=== PATIENT | female | born 1975 | race Caucasian/White ===

== ENCOUNTER 2017-02-19 17:50 | Emergency (ER) | payer MEDICAID, OTHER ==
[~2017-02-19] VITALS: Ht 162.6 cm; Wt 86.4 kg
[~2017-02-19 17:50] MED LIST: CIPR-278 PO; CITA20TA9 PO; FERR-89 PO; FLUC200T PO; OLAN10TA3 PO
[2017-02-19] MEDS ORDERED: LIDOCAINE HCL 1% 10 ML VIAL INJ ONE (19:00)
[2017-02-19] MEDS ORDERED: CEPHALEXIN MONOHYDRATE 500 MG CAPSULE PO ONE (19:00)
[2017-02-19] MEDS ORDERED: SULFAMETHOX/TRIMETH DS 800-160 MG/TABLET PO ONE (19:00)
[2017-02-19] MEDS ORDERED: HYDROCODONE/ACETAMINOPHEN 5-325 MG TABLET PO ONE ×2 (19:00→21:30)
[2017-02-19] MEDS ORDERED: MUPIROCIN CALCIUM 2% 22 GM OINTMENT TP ONE (21:00)
[2017-02-19 21:52] VITALS: BP 122/78
== END 2017-02-19 21:55 | disposition home or self-care (01) ==
LOC: EMS 17:51
DX: L03.032 Cellulitis of left toe (principal); L02.612 Cutaneous abscess of left foot; F20.9 Schizophrenia, unspecified; F32.9 Major depressive disorder, single episode, unspecified; F19.90 Other psychoactive substance use, unspecified, uncomplicated
CPT/HCPCS: 99284; J3490

== ENCOUNTER 2017-05-08 22:42 | Inpatient (IN) | payer MEDICAID, OTHER ==
[~2017-05-08] VITALS: Ht 172.7 cm; Wt 84.9 kg
[2017-05-09] MEDS ORDERED: BACITRACIN 0.9 GM PACKET OINTMENT TP ONE (01:15)
[2017-05-09 01:16] LABS: BASOPHILS % (AUTO) 0.5 % (0.0-2.0); EOSINOPHILS % (AUTO) 4.5 % (1.0-6.0); HEMATOCRIT 23.3 % (36-46); HEMOGLOBIN 7.3 g/dL (12.0-16.0); LYMPHOCYTES # (AUTO) 1.1 K/uL (1.0-4.8); MEAN CORPUSCULAR HEMOGLOBIN 20.5 pg (26.0-34.0); MEAN CORPUSCULAR HGB CONC 31.2 G/dL (31.0-37.0); MEAN CORPUSCULAR VOLUME 66 fL (80-100); MONOCYTES # (AUTO) 0.6 K/uL (0.1-1.0); MONOCYTES % (AUTO) 9.7 % (2.0-9.0); NEUTROPHILS # (AUTO) 4.4 K/uL (1.8-7.7); NEUTROPHILS % (AUTO) 68.3 % (40.0-70.0); PLATELET COUNT (AUTO) 405 K/uL (150-450); RED BLOOD CELL COUNT(AUTO) 3.54 MIL/uL (4.00-5.20); RED CELL DISTRIBUTION WIDTH 17.5 % (11.5-14.5)
[2017-05-09 01:30] LABS: ANION GAP 8 mmol/L (8-16); CALCIUM, TOTAL 8.4 mg/dL (8.8-10.5); CARBON DIOXIDE 27 mmol/L (22-29); CHLORIDE 103 mmol/L (98-107); CREATININE 0.46 mg/dL (0.60-1.30); GLOMERULAR FILTR. RATE CALC > 60 mL/min (>60); GLUCOSE,RANDOM 102 mg/dL (70-110); POTASSIUM 4.2 mmol/L (3.5-5.1); SODIUM SERUM 138 mmol/L (136-145); UREA NITROGEN, BLOOD 13 mg/dL (7-18)
[2017-05-09 01:36] LABS: ALANINE AMINOTRANSFERASE 31 U/L (12-78); ALBUMIN 3.1 g/dL (3.4-5.0); ALKALINE PHOSPHATASE 92 U/L (46-116); ASPARTATE AMINOTRANSFERASE 30 U/L (15-37); BILIRUBIN,TOTAL 0.2 mg/dL (0.1-1.0); TOTAL PROTEIN, SERUM 7.9 g/dL (6.4-8.2)
[2017-05-09 02:16] LABS: % IRON SATURATION 2.9 % (22-44)
[2017-05-09 02:24] LABS: AMPHET/METH SCREEN,URINE POSITIVE (NEGATIVE); BARBITURATE SCREEN, URINE NEGATIVE (NEGATIVE); BENZODIAZEPINES SCREEN,URINE NEGATIVE (NEGATIVE); CANNABINOID SCREEN,URINE NEGATIVE (NEGATIVE); COCAINE SCREEN,URINE NEGATIVE (NEGATIVE); METHADONE SCREEN, URINE NEGATIVE (NEGATIVE); OPIATE SCREEN,URINE NEGATIVE (NEGATIVE)
[2017-05-09 02:26] LABS: PHENCYCLIDINE SCREEN,URINE NEGATIVE (NEGATIVE)
[2017-05-09] MEDS ORDERED: FERROUS SULFATE 325 MG EC TABLET PO ONE (02:45)
[2017-05-09] MEDS ORDERED: ZOLPIDEM TARTRATE 10 MG TABLET PO PRN (03:00)
[2017-05-09 03:20] LABS: APPEARANCE,URINE TURBID (CLEAR); BILIRUBIN,URINE NEGATIVE (NEGATIVE); GLUCOSE, URINE (UA) NEGATIVE (NEGATIVE); KETONES,URINE NEGATIVE (NEGATIVE); LEUKOCYTE ESTERASE ,URINE MODERATE (NEGATIVE); NITRATE,URINE NEGATIVE (NEGATIVE); OCCULT BLOOD,URINE NEGATIVE (NEGATIVE); PROTEIN,URINE NEGATIVE (NEGATIVE)
[2017-05-09 03:35] LABS: CHOL/HDL RATIO 2.5 (3.9-5.7); CHOLESTEROL 131 mg/dL (131-200); HDL CHOLESTEROL 53 mg/dL (40-60); LDL CHOL (CALC.) 60 mg/dL (0-130); THYROID STIMULATING HORMONE 1.58 uIU/mL (0.36-3.74); TRIGLYCERIDES 89 mg/dL (15-150)
[2017-05-09 03:48] LABS: AMORPHOUS SEDIMENT,UR Many /LPF (None Seen)
[2017-05-09 03:50] LABS: BACTERIA,URINE Many /HPF (None Seen); RBC,URINE 0-2 /HPF (0-2)
[2017-05-09 03:51] LABS: SQUAMOUS EPITHELIAL CELL,UR Moderate /LPF (None Seen)
[2017-05-09] MEDS: LORazepam 2 MG TABLET PO PRN ×2 (06:04→21:36)
[2017-05-09] MEDS: HALOPERIDOL 5 MG TABLET PO PRN ×2 (06:09→21:36)
[2017-05-09] MEDS ORDERED: NITROFURANTOIN/NITROFURAN MAC 100 MG CAPSULE [MACROBID] PO ONE (15:00)
[2017-05-09 16:19] VITALS: BP 123/98
[2017-05-09] MEDS ORDERED: MAG HYDROX/AL HYDROX/SIMETH ES 30 ML SUSPENSION UDCUP PO PRN (17:45)
[2017-05-09] MEDS ORDERED: ONDANSETRON HCL 4 MG TABLET PO PRN (17:45)
[2017-05-09] MEDS ORDERED: BACITRACIN 28.4 GM OINTMENT TP PRN (17:45)
[2017-05-09] MEDS ORDERED: MAGNESIUM HYDROXIDE SUSPENSION 30 ML UDCUP PO PRN (17:45)
[2017-05-09] MEDS ORDERED: PETROLATUM,WHITE 71 GM JELLY TP PRN (17:45)
[2017-05-09] MEDS ORDERED: BENZOCAINE/MENTHOL LOZENGE MM PRN (17:45)
[2017-05-09] MEDS ORDERED: CloNIDine HCL 0.1 MG TABLET PO PRN (17:45)
[2017-05-09] MEDS ORDERED: ALBUTEROL SULFATE HFA 90 MCG/PUFF 8 GM INHALER IH PRN (17:45)
[2017-05-09] MEDS ORDERED: LOPERAMIDE HCL 2 MG CAPSULE PO PRN (17:45)
[2017-05-09] MEDS ORDERED: ACETAMINOPHEN 325 MG TABLET PO PRN (17:45)
[2017-05-09] MEDS: NITROFURANTOIN/NITROFURAN MAC 100 MG CAPSULE [MACROBID] PO SCH (18:42)
[2017-05-09] MEDS: IBUPROFEN 600 MG TABLET PO PRN (18:43)
[2017-05-09] MEDS ORDERED: INFLUENZA VIRUS VACCINE QVS 2017-18 (3YR+)/PF 60 MCG/0.5 ML SYRINGE IM ONE (19:30)
[2017-05-09 19:43] VITALS: BP 125/75
[2017-05-10 07:06] VITALS: BP 130/75
[2017-05-10 08:00] VITALS: BP 134/76
[2017-05-10] MEDS: NITROFURANTOIN/NITROFURAN MAC 100 MG CAPSULE [MACROBID] PO SCH ×2 (09:38→17:06)
[2017-05-10] MEDS: DOCUSATE SODIUM 100 MG CAPSULE PO SCH (09:38)
[2017-05-10] MEDS: OMEPRAZOLE 20 MG CAPSULE PO SCH (09:38)
[2017-05-10] MEDS: MULTIVITAMINS WITH MINERALS, THERAPEUTIC TABLET PO SCH (09:44)
[2017-05-10] MEDS: LORazepam 2 MG TABLET PO PRN ×2 (12:08→16:11)
[2017-05-10] MEDS: CITALOPRAM HYDROBROMIDE 20 MG TABLET PO SCH (12:09)
[2017-05-10 16:06] VITALS: BP 118/69
[2017-05-10] MEDS: HALOPERIDOL 5 MG TABLET PO PRN (16:11)
[2017-05-10] MEDS: FERROUS SULFATE 325 MG EC TABLET PO SCH (17:06)
[2017-05-10] MEDS: OLANZapine 10 MG RAPDIS TABLET PO SCH (20:16)
[2017-05-11] MEDS: FERROUS SULFATE 325 MG EC TABLET PO SCH ×2 (07:06→16:52)
[2017-05-11 07:28] VITALS: BP 120/72
[2017-05-11] MEDS: NITROFURANTOIN/NITROFURAN MAC 100 MG CAPSULE [MACROBID] PO SCH ×2 (08:18→16:52)
[2017-05-11] MEDS: LORazepam 2 MG TABLET PO PRN ×2 (08:18→16:52)
[2017-05-11] MEDS: MULTIVITAMINS WITH MINERALS, THERAPEUTIC TABLET PO SCH (08:18)
[2017-05-11] MEDS: DOCUSATE SODIUM 100 MG CAPSULE PO SCH (08:18)
[2017-05-11] MEDS: HALOPERIDOL 5 MG TABLET PO PRN ×2 (08:18→16:52)
[2017-05-11] MEDS: CITALOPRAM HYDROBROMIDE 20 MG TABLET PO SCH (08:18)
[2017-05-11] MEDS: OMEPRAZOLE 20 MG CAPSULE PO SCH (08:18)
[2017-05-11 08:26] VITALS: BP 129/73
[2017-05-11 16:16] VITALS: BP 112/76
[2017-05-11] MEDS: OLANZapine 10 MG RAPDIS TABLET PO SCH (20:29)
[2017-05-12] MEDS: FERROUS SULFATE 325 MG EC TABLET PO SCH ×2 (06:13→17:21)
[2017-05-12 06:54] VITALS: BP 102/63
[2017-05-12 08:11] VITALS: BP 131/63
[2017-05-12] MEDS: LORazepam 2 MG TABLET PO PRN (10:36)
[2017-05-12] MEDS: DOCUSATE SODIUM 100 MG CAPSULE PO SCH (10:36)
[2017-05-12] MEDS: NITROFURANTOIN/NITROFURAN MAC 100 MG CAPSULE [MACROBID] PO SCH ×2 (10:36→17:21)
[2017-05-12] MEDS: CITALOPRAM HYDROBROMIDE 20 MG TABLET PO SCH (10:36)
[2017-05-12] MEDS: OMEPRAZOLE 20 MG CAPSULE PO SCH (10:36)
[2017-05-12] MEDS: HALOPERIDOL 5 MG TABLET PO PRN (10:36)
[2017-05-12] MEDS: MULTIVITAMINS WITH MINERALS, THERAPEUTIC TABLET PO SCH (10:36)
[2017-05-12 16:02] VITALS: BP 108/69
[2017-05-12] MEDS: OLANZapine 10 MG RAPDIS TABLET PO SCH (20:24)
[2017-05-13 06:30] VITALS: BP 112/73
[2017-05-13] MEDS: FERROUS SULFATE 325 MG EC TABLET PO SCH ×2 (06:38→16:39)
[2017-05-13 08:34] VITALS: BP 129/69
[2017-05-13] MEDS: NITROFURANTOIN/NITROFURAN MAC 100 MG CAPSULE [MACROBID] PO SCH ×2 (09:34→16:39)
[2017-05-13] MEDS: MULTIVITAMINS WITH MINERALS, THERAPEUTIC TABLET PO SCH (09:34)
[2017-05-13] MEDS: OMEPRAZOLE 20 MG CAPSULE PO SCH (09:34)
[2017-05-13] MEDS: DOCUSATE SODIUM 100 MG CAPSULE PO SCH (09:34)
[2017-05-13] MEDS: CITALOPRAM HYDROBROMIDE 20 MG TABLET PO SCH (09:34)
[2017-05-13 16:11] VITALS: BP 131/69
[2017-05-13] MEDS: OLANZapine 10 MG RAPDIS TABLET PO SCH (20:07)
[2017-05-14 02:05] VITALS: BP 114/69
[2017-05-14] MEDS: FERROUS SULFATE 325 MG EC TABLET PO SCH ×2 (06:51→16:21)
[2017-05-14] MEDS: CITALOPRAM HYDROBROMIDE 20 MG TABLET PO SCH (08:17)
[2017-05-14] MEDS: OMEPRAZOLE 20 MG CAPSULE PO SCH (08:17)
[2017-05-14] MEDS: DOCUSATE SODIUM 100 MG CAPSULE PO SCH (08:17)
[2017-05-14] MEDS: MULTIVITAMINS WITH MINERALS, THERAPEUTIC TABLET PO SCH (08:17)
[2017-05-14] MEDS: NITROFURANTOIN/NITROFURAN MAC 100 MG CAPSULE [MACROBID] PO SCH ×2 (08:17→16:21)
[2017-05-14 08:21] VITALS: BP 147/73
[2017-05-14] MEDS: LORazepam 2 MG TABLET PO PRN ×2 (08:49→16:21)
[2017-05-14 16:15] VITALS: BP 126/69
[2017-05-14] MEDS: OLANZapine 10 MG RAPDIS TABLET PO SCH (20:26)
[2017-05-15 05:30] VITALS: BP 135/89
[2017-05-15] MEDS: FERROUS SULFATE 325 MG EC TABLET PO SCH ×2 (07:05→16:35)
[2017-05-15 08:35] VITALS: BP 128/79
[2017-05-15] MEDS: OMEPRAZOLE 20 MG CAPSULE PO SCH (08:36)
[2017-05-15] MEDS: NITROFURANTOIN/NITROFURAN MAC 100 MG CAPSULE [MACROBID] PO SCH ×2 (08:36→16:03)
[2017-05-15] MEDS: DOCUSATE SODIUM 100 MG CAPSULE PO SCH (08:36)
[2017-05-15] MEDS: MULTIVITAMINS WITH MINERALS, THERAPEUTIC TABLET PO SCH (08:36)
[2017-05-15] MEDS: CITALOPRAM HYDROBROMIDE 20 MG TABLET PO SCH (08:36)
[2017-05-15] MEDS: LORazepam 2 MG TABLET PO PRN ×2 (08:46→16:02)
[2017-05-15 16:01] VITALS: BP 130/64
[2017-05-15 20:07] VITALS: BP 125/75
[2017-05-15] MEDS: IBUPROFEN 600 MG TABLET PO PRN (20:08)
[2017-05-15] MEDS: OLANZapine 10 MG RAPDIS TABLET PO SCH (20:08)
[2017-05-15 21:07] VITALS: BP 120/82
[2017-05-16 02:12] VITALS: BP 127/63
[2017-05-16] MEDS: FERROUS SULFATE 325 MG EC TABLET PO SCH ×2 (06:31→16:41)
[2017-05-16 08:29] VITALS: BP 128/91
[2017-05-16] MEDS: MULTIVITAMINS WITH MINERALS, THERAPEUTIC TABLET PO SCH (08:56)
[2017-05-16] MEDS: OMEPRAZOLE 20 MG CAPSULE PO SCH (08:56)
[2017-05-16] MEDS: CITALOPRAM HYDROBROMIDE 20 MG TABLET PO SCH (08:56)
[2017-05-16] MEDS: LORazepam 2 MG TABLET PO PRN ×2 (08:56→16:41)
[2017-05-16] MEDS: DOCUSATE SODIUM 100 MG CAPSULE PO SCH (08:56)
[2017-05-16] MEDS: MAGNESIUM SULFATE 454 GM BOX TP SCH ×2 (13:22→17:18)
[2017-05-16 16:00] VITALS: BP 135/87
[2017-05-16] MEDS: HALOPERIDOL 5 MG TABLET PO PRN (16:41)
[2017-05-16] MEDS: OLANZapine 10 MG RAPDIS TABLET PO SCH (20:25)
[2017-05-17 06:21] VITALS: BP 118/60
[2017-05-17] MEDS: FERROUS SULFATE 325 MG EC TABLET PO SCH ×2 (06:50→17:04)
[2017-05-17 09:00] VITALS: BP 123/67
[2017-05-17] MEDS: OMEPRAZOLE 20 MG CAPSULE PO SCH (09:04)
[2017-05-17] MEDS: DOCUSATE SODIUM 100 MG CAPSULE PO SCH (09:05)
[2017-05-17] MEDS: HALOPERIDOL 5 MG TABLET PO PRN ×2 (09:05→17:04)
[2017-05-17] MEDS: CITALOPRAM HYDROBROMIDE 20 MG TABLET PO SCH (09:05)
[2017-05-17] MEDS: LORazepam 2 MG TABLET PO PRN ×2 (09:05→17:04)
[2017-05-17] MEDS: MULTIVITAMINS WITH MINERALS, THERAPEUTIC TABLET PO SCH (09:05)
[2017-05-17] MEDS: MAGNESIUM SULFATE 454 GM BOX TP SCH ×2 (09:06→17:04)
[2017-05-17 14:41] VITALS: BP 118/70
[2017-05-17] MEDS: IBUPROFEN 600 MG TABLET PO PRN (14:42)
[2017-05-17 15:42] VITALS: BP 116/76
[2017-05-17 16:30] VITALS: BP 119/71
[2017-05-17] MEDS: OLANZapine 10 MG RAPDIS TABLET PO SCH (20:56)
[2017-05-18] MEDS: FERROUS SULFATE 325 MG EC TABLET PO SCH ×2 (06:19→16:24)
[2017-05-18 07:15] VITALS: BP 128/72
[2017-05-18] MEDS: CITALOPRAM HYDROBROMIDE 20 MG TABLET PO SCH (08:15)
[2017-05-18] MEDS: MULTIVITAMINS WITH MINERALS, THERAPEUTIC TABLET PO SCH (08:15)
[2017-05-18] MEDS: LORazepam 2 MG TABLET PO PRN (08:15)
[2017-05-18] MEDS: DOCUSATE SODIUM 100 MG CAPSULE PO SCH (08:15)
[2017-05-18] MEDS: HALOPERIDOL 5 MG TABLET PO PRN (08:15)
[2017-05-18] MEDS: OMEPRAZOLE 20 MG CAPSULE PO SCH (08:15)
[2017-05-18] MEDS: MAGNESIUM SULFATE 454 GM BOX TP SCH ×2 (08:16→16:24)
[2017-05-18 08:22] VITALS: BP 133/94
[2017-05-18] MEDS ORDERED: FERR325T22 PO (14:26)
[2017-05-18] MEDS ORDERED: DSSL PO (14:27)
[2017-05-18] MEDS ORDERED: OMEP20CA10 PO (14:28)
[2017-05-18 16:17] VITALS: BP 126/69
== END 2017-05-18 16:45 | disposition home or self-care (01) | DRG 750 ==
LOC: EMS 22:46 → B3A 05-09 14:49
DX: F25.1 Schizoaffective disorder, depressive type (principal); R45.851 Suicidal ideations; Z59.0 Homelessness; N39.0 Urinary tract infection, site not specified; F15.10 Other stimulant abuse, uncomplicated; D50.9 Iron deficiency anemia, unspecified; F17.200 Nicotine dependence, unspecified, uncomplicated; L98.8 Other specified disorders of the skin and subcutaneous tissue; G47.00 Insomnia, unspecified; Z71.51 Drug abuse counseling and surveillance of drug abuser; Z71.6 Tobacco abuse counseling; Z79.899 Other long term (current) drug therapy; Z90.49 Acquired absence of other specified parts of digestive tract
CPT/HCPCS: 83540; 83550; 84443; 85045; 87086; 99285; G0480; J3535

== ENCOUNTER 2017-11-17 11:57 | Emergency (ER) | payer MEDICAID ==
[~2017-11-17] VITALS: Ht 165.1 cm; Wt 90.9 kg
[~2017-11-17 11:57] MED LIST changes: -CIPR-278 PO; +CITA10TA68 PO; -CITA20TA9 PO; -FERR-89 PO; -FLUC200T PO; +OLAN10TA20 PO; -OLAN10TA3 PO
[2017-11-17 17:01] VITALS: BP 121/75
== END 2017-11-17 17:21 | disposition home or self-care (01) ==
LOC: EMS 12:00
DX: S00.212A Abrasion of left eyelid and periocular area, initial encounter (principal); F32.9 Major depressive disorder, single episode, unspecified; F20.9 Schizophrenia, unspecified; F19.90 Other psychoactive substance use, unspecified, uncomplicated; Z90.49 Acquired absence of other specified parts of digestive tract; W05.1XXA Fall from non-moving nonmotorized scooter, initial encounter; Y93.89 Activity, other specified; Y92.89 Other specified places as the place of occurrence of the external cause; Y99.8 Other external cause status
CPT/HCPCS: 99283

== ENCOUNTER 2018-03-04 05:16 | Emergency (ER) | payer MEDICAID ==
[~2018-03-04] VITALS: Ht 162.6 cm; Wt 87.0 kg
[2018-03-04] MEDS ORDERED: BACITRACIN 0.9 GM PACKET OINTMENT TP ONE (07:00)
[2018-03-04 07:05] VITALS: BP 120/85
== END 2018-03-04 09:01 | disposition home or self-care (01) ==
LOC: EMS 05:17
DX: S00.01XA Abrasion of scalp, initial encounter (principal); S30.810A Abrasion of lower back and pelvis, initial encounter; S30.814A Abrasion of vagina and vulva, initial encounter; L08.9 Local infection of the skin and subcutaneous tissue, unspecified; F41.9 Anxiety disorder, unspecified; F32.9 Major depressive disorder, single episode, unspecified; F20.9 Schizophrenia, unspecified; F17.210 Nicotine dependence, cigarettes, uncomplicated; F19.90 Other psychoactive substance use, unspecified, uncomplicated; Z90.49 Acquired absence of other specified parts of digestive tract; X58.XXXA Exposure to other specified factors, initial encounter; Y93.89 Activity, other specified; Y92.89 Other specified places as the place of occurrence of the external cause; Y99.8 Other external cause status

== ENCOUNTER 2018-05-27 18:11 | Inpatient (IN) | payer MEDICAID ==
[~2018-05-27] VITALS: Ht 162.6 cm; Wt 91.7 kg
[~2018-05-27 18:11] MED LIST changes: +CEPH500 PO; +CITA-106 PO; -CITA10TA68 PO; +NYST30CR9 TP
[2018-05-27 21:25] LABS: BASOPHILS % (AUTO) 0.6 % (0.0-2.0); EOSINOPHILS % (AUTO) 6.3 % (1.0-6.0); HEMATOCRIT 38.3 % (36-46); HEMOGLOBIN 12.7 g/dL (12.0-16.0); LYMPHOCYTES # (AUTO) 1.7 K/uL (1.0-4.8); LYMPHOCYTES % (AUTO) 29.1 % (22.0-44.0); MEAN CORPUSCULAR HEMOGLOBIN 26.1 pg (26.0-34.0); MEAN CORPUSCULAR HGB CONC 33.2 G/dL (31.0-37.0); MEAN CORPUSCULAR VOLUME 79 fL (80-100); MONOCYTES # (AUTO) 0.4 K/uL (0.1-1.0); MONOCYTES % (AUTO) 6.2 % (2.0-9.0); NEUTROPHILS # (AUTO) 3.3 K/uL (1.8-7.7); NEUTROPHILS % (AUTO) 57.8 % (40.0-70.0); PLATELET COUNT (AUTO) 319 K/uL (150-450); RED BLOOD CELL COUNT(AUTO) 4.87 MIL/uL (4.00-5.20); RED CELL DISTRIBUTION WIDTH 23.3 % (11.5-14.5)
[2018-05-27 22:03] LABS: ANION GAP 6 mmol/L (8-16); CALCIUM, TOTAL 8.8 mg/dL (8.8-10.5); CARBON DIOXIDE 28 mmol/L (22-29); CHLORIDE 104 mmol/L (98-107); GLOMERULAR FILTR. RATE CALC > 60 mL/min (>60); GLUCOSE,RANDOM 115 mg/dL (70-110); POTASSIUM 3.7 mmol/L (3.5-5.1); SODIUM SERUM 138 mmol/L (136-145); UREA NITROGEN, BLOOD 10 mg/dL (7-18)
[2018-05-27 22:09] LABS: ALANINE AMINOTRANSFERASE 32 U/L (12-78); ALBUMIN 3.3 g/dL (3.4-5.0); ALKALINE PHOSPHATASE 100 U/L (46-116); ASPARTATE AMINOTRANSFERASE 22 U/L (15-37); BILIRUBIN,TOTAL 0.3 mg/dL (0.1-1.0); TOTAL PROTEIN, SERUM 8.5 g/dL (6.4-8.2)
[2018-05-27] MEDS ORDERED: DiphenhydrAMINE HCL 25 MG CAPSULE PO ONE (22:30)
[2018-05-27] MEDS ORDERED: OLANZapine 5 MG TABLET PO ONE (22:30)
[2018-05-27] MEDS ORDERED: LORazepam 2 MG TABLET PO ONE (22:30)
[2018-05-28] MEDS ORDERED: ZOLPIDEM TARTRATE 10 MG TABLET PO PRN
[2018-05-28 03:02] VITALS: BP 125/78
[2018-05-28] MEDS ORDERED: ACETAMINOPHEN 325 MG TABLET PO PRN (04:00)
[2018-05-28] MEDS ORDERED: LOPERAMIDE HCL 2 MG CAPSULE PO PRN (04:00)
[2018-05-28] MEDS ORDERED: MAG HYDROX/AL HYDROX/SIMETH ES 30 ML SUSPENSION UDCUP PO PRN (04:00)
[2018-05-28] MEDS ORDERED: DOCUSATE SODIUM 100 MG CAPSULE PO PRN (04:00)
[2018-05-28] MEDS ORDERED: PETROLATUM,WHITE 71 GM JELLY TP PRN (04:00)
[2018-05-28] MEDS ORDERED: MAGNESIUM HYDROXIDE SUSPENSION 30 ML UDCUP PO PRN (04:00)
[2018-05-28] MEDS ORDERED: NICOTINE 14 MG/24 HOUR PATCH TD PRN (04:00)
[2018-05-28] MEDS ORDERED: ONDANSETRON HCL 4 MG TABLET PO PRN (04:00)
[2018-05-28] MEDS ORDERED: CloNIDine HCL 0.1 MG TABLET PO PRN (04:00)
[2018-05-28] MEDS ORDERED: ALBUTEROL SULFATE HFA 90 MCG/PUFF 8 GM INHALER IH PRN (04:00)
[2018-05-28] MEDS ORDERED: GuaiFENesin/D-METHORPHAN [SUGAR-FREE] 200-20MG/10 ML SYRUP UDCUP PO PRN (04:00)
[2018-05-28 08:24] VITALS: BP 147/96
[2018-05-28] MEDS: CITALOPRAM HYDROBROMIDE 20 MG TABLET PO SCH (10:33)
[2018-05-28 14:00] VITALS: BP 125/66
[2018-05-28 16:10] VITALS: BP 105/60
[2018-05-28] MEDS: LORazepam 2 MG TABLET PO PRN (17:01)
[2018-05-28] MEDS: HALOPERIDOL 5 MG TABLET PO PRN (17:01)
[2018-05-28] MEDS: OLANZapine 10 MG TABLET PO SCH (20:42)
[2018-05-29 06:23] VITALS: BP 121/74
[2018-05-29 08:32] LABS: BASOPHILS % (AUTO) 0.3 % (0.0-2.0); HEMATOCRIT 38.1 % (36-46); HEMOGLOBIN 12.5 g/dL (12.0-16.0); LYMPHOCYTES # (AUTO) 1.2 K/uL (1.0-4.8); LYMPHOCYTES % (AUTO) 27.1 % (22.0-44.0); MEAN CORPUSCULAR HEMOGLOBIN 26.1 pg (26.0-34.0); MEAN CORPUSCULAR HGB CONC 32.7 G/dL (31.0-37.0); MEAN CORPUSCULAR VOLUME 80 fL (80-100); MONOCYTES # (AUTO) 0.4 K/uL (0.1-1.0); MONOCYTES % (AUTO) 8.3 % (2.0-9.0); NEUTROPHILS # (AUTO) 2.5 K/uL (1.8-7.7); NEUTROPHILS % (AUTO) 56.3 % (40.0-70.0); PLATELET COUNT (AUTO) 260 K/uL (150-450); RED BLOOD CELL COUNT(AUTO) 4.78 MIL/uL (4.00-5.20); RED CELL DISTRIBUTION WIDTH 23.1 % (11.5-14.5)
[2018-05-29 08:46] LABS: HEMOGLOBIN A1C 5.3 % (4.5-6.2)
[2018-05-29 08:54] LABS: ALANINE AMINOTRANSFERASE 26 U/L (12-78); ALBUMIN 2.7 g/dL (3.4-5.0); ALKALINE PHOSPHATASE 81 U/L (46-116); ANION GAP 7 mmol/L (8-16); ASPARTATE AMINOTRANSFERASE 16 U/L (15-37); BILIRUBIN,TOTAL 0.2 mg/dL (0.1-1.0); CALCIUM, TOTAL 8.6 mg/dL (8.8-10.5); CARBON DIOXIDE 28 mmol/L (22-29); CHLORIDE 105 mmol/L (98-107); CHOL/HDL RATIO 3.6 (3.9-5.7); CHOLESTEROL 103 mg/dL (131-200); CREATININE 0.51 mg/dL (0.60-1.30); GLOMERULAR FILTR. RATE CALC > 60 mL/min (>60); GLUCOSE,RANDOM 89 mg/dL (70-110); HDL CHOLESTEROL 29 mg/dL (40-60); LDL CHOL (CALC.) 62 mg/dL (0-130); POTASSIUM 4.1 mmol/L (3.5-5.1); SODIUM SERUM 140 mmol/L (136-145); THYROID STIMULATING HORMONE 0.39 uIU/mL (0.36-3.74); TOTAL PROTEIN, SERUM 7.5 g/dL (6.4-8.2); TRIGLYCERIDES 62 mg/dL (15-150); UREA NITROGEN, BLOOD 10 mg/dL (7-18)
[2018-05-29] MEDS: CITALOPRAM HYDROBROMIDE 20 MG TABLET PO SCH (09:33)
[2018-05-29] MEDS: LORazepam 2 MG TABLET PO PRN ×2 (09:36→17:14)
[2018-05-29 13:12] VITALS: BP 139/72
[2018-05-29 16:31] VITALS: BP 118/76
[2018-05-29] MEDS: OLANZapine 10 MG TABLET PO SCH (20:12)
[2018-05-30 06:51] VITALS: BP 115/72
[2018-05-30 08:30] VITALS: BP 122/70
[2018-05-30] MEDS: CITALOPRAM HYDROBROMIDE 20 MG TABLET PO SCH (08:59)
[2018-05-30] MEDS: LORazepam 2 MG TABLET PO PRN (16:19)
[2018-05-30] MEDS: HALOPERIDOL 5 MG TABLET PO PRN (16:19)
[2018-05-30 16:42] VITALS: BP 125/61
[2018-05-30] MEDS: OLANZapine 10 MG TABLET PO SCH (20:40)
[2018-05-31 02:10] VITALS: BP 126/70
[2018-05-31] MEDS: CITALOPRAM HYDROBROMIDE 20 MG TABLET PO SCH (09:34)
[2018-05-31 16:37] VITALS: BP 116/60
[2018-05-31] MEDS: OLANZapine 10 MG TABLET PO SCH (21:02)
[2018-06-01 03:40] VITALS: BP 122/65
[2018-06-01 08:14] VITALS: BP 162/70
[2018-06-01] MEDS: CITALOPRAM HYDROBROMIDE 20 MG TABLET PO SCH (08:15)
[2018-06-01] MEDS: LORazepam 2 MG TABLET PO PRN (14:50)
[2018-06-01 16:27] VITALS: BP 129/76
[2018-06-01] MEDS: OLANZapine 7.5 MG TABLET PO SCH (20:24)
[2018-06-02 07:04] VITALS: BP 114/66
[2018-06-02] MEDS: IBUPROFEN 400 MG TABLET PO PRN ×2 (07:25→17:30)
[2018-06-02] MEDS: LORazepam 2 MG TABLET PO PRN ×2 (08:34→16:17)
[2018-06-02] MEDS: CITALOPRAM HYDROBROMIDE 20 MG TABLET PO SCH (08:34)
[2018-06-02 12:42] VITALS: BP 123/77
[2018-06-02 16:10] VITALS: BP 129/82
[2018-06-02 17:30] VITALS: BP 119/85
[2018-06-02] MEDS: OLANZapine 7.5 MG TABLET PO SCH (20:26)
[2018-06-03 00:49] VITALS: BP 130/80
[2018-06-03] MEDS: LORazepam 2 MG TABLET PO PRN ×2 (07:12→20:25)
[2018-06-03] MEDS: IBUPROFEN 400 MG TABLET PO PRN (07:12)
[2018-06-03 08:12] VITALS: BP 114/80
[2018-06-03] MEDS: CITALOPRAM HYDROBROMIDE 20 MG TABLET PO SCH (08:28)
[2018-06-03 16:16] VITALS: BP 147/79
[2018-06-03] MEDS: OLANZapine 10 MG TABLET PO SCH (20:25)
[2018-06-04 06:39] VITALS: BP 120/80
[2018-06-04] MEDS: CITALOPRAM HYDROBROMIDE 20 MG TABLET PO SCH (08:34)
[2018-06-04 10:46] VITALS: BP 101/60
[2018-06-04] MEDS: LORazepam 2 MG TABLET PO PRN ×2 (12:20→21:19)
[2018-06-04 16:08] VITALS: BP 113/71
[2018-06-04] MEDS: OLANZapine 10 MG TABLET PO SCH (21:19)
[2018-06-05 06:42] VITALS: BP 119/70
[2018-06-05] MEDS: CITALOPRAM HYDROBROMIDE 20 MG TABLET PO SCH (08:49)
[2018-06-05] MEDS: LORazepam 2 MG TABLET PO PRN ×2 (08:49→16:11)
[2018-06-05 16:09] VITALS: BP 121/73
[2018-06-05] MEDS: OLANZapine 10 MG TABLET PO SCH (20:30)
[2018-06-06 01:49] VITALS: BP 124/86
[2018-06-06 08:19] VITALS: BP 113/72
[2018-06-06] MEDS: CITALOPRAM HYDROBROMIDE 20 MG TABLET PO SCH (08:21)
[2018-06-06] MEDS: LORazepam 2 MG TABLET PO PRN ×2 (08:21→16:04)
[2018-06-06 16:30] VITALS: BP 115/63
[2018-06-06] MEDS: OLANZapine 10 MG TABLET PO SCH (20:38)
[2018-06-07 02:27] VITALS: BP 116/81
[2018-06-07 08:21] VITALS: BP 126/82
[2018-06-07] MEDS: CITALOPRAM HYDROBROMIDE 20 MG TABLET PO SCH (08:21)
[2018-06-07 16:07] VITALS: BP 109/61
[2018-06-07] MEDS ORDERED: ZOLPIDEM TARTRATE 10 MG TABLET PO PRN (19:15)
[2018-06-07] MEDS ORDERED: LORazepam 2 MG TABLET PO PRN (19:15)
[2018-06-07] MEDS: OLANZapine 10 MG TABLET PO SCH (20:04)
[2018-06-08 00:18] VITALS: BP 102/60
[2018-06-08] MEDS ORDERED: OLAN10TA3 PO (07:37)
[2018-06-08 08:12] VITALS: BP 121/64
[2018-06-08] MEDS: CITALOPRAM HYDROBROMIDE 20 MG TABLET PO SCH (09:02)
== END 2018-06-08 13:25 | disposition home or self-care (01) | DRG 750 ==
LOC: EMS 18:12 → B3A 05-28 00:21
PROVIDERS: ADMIT Psychiatry & Neurology Psychiatry; ATTEND Psychiatry & Neurology Psychiatry
DX: F25.1 Schizoaffective disorder, depressive type (principal); R45.851 Suicidal ideations; Z59.0 Homelessness; F43.10 Post-traumatic stress disorder, unspecified; J30.9 Allergic rhinitis, unspecified; K59.00 Constipation, unspecified; F19.90 Other psychoactive substance use, unspecified, uncomplicated; F10.10 Alcohol abuse, uncomplicated; D72.819 Decreased white blood cell count, unspecified; F41.9 Anxiety disorder, unspecified; F17.210 Nicotine dependence, cigarettes, uncomplicated; R00.0 Tachycardia, unspecified; F99 Mental disorder, not otherwise specified; Z91.19 Patient's noncompliance with other medical treatment and regimen
CPT/HCPCS: 83036; 84443; G0480

== ENCOUNTER 2018-06-23 10:51 | Inpatient (IN) | payer MEDICAID ==
[~2018-06-23] VITALS: Ht 162.6 cm; Wt 95.3 kg
[~2018-06-23 10:51] MED LIST changes: -CEPH500 PO; -NYST30CR9 TP; -OLAN10TA20 PO; +OLAN10TA3 PO
[2018-06-23] MEDS ORDERED: QUEtiapine FUMARATE 100 MG TABLET PO ONE (13:00)
[2018-06-23 13:06] LABS: BASOPHILS % (AUTO) 0.4 % (0.0-2.0); EOSINOPHILS % (AUTO) 7.5 % (1.0-6.0); HEMATOCRIT 36.3 % (36-46); LYMPHOCYTES # (AUTO) 1.2 K/uL (1.0-4.8); LYMPHOCYTES % (AUTO) 26.2 % (22.0-44.0); MEAN CORPUSCULAR HEMOGLOBIN 26.6 pg (26.0-34.0); MEAN CORPUSCULAR HGB CONC 33.1 G/dL (31.0-37.0); MEAN CORPUSCULAR VOLUME 81 fL (80-100); MONOCYTES # (AUTO) 0.4 K/uL (0.1-1.0); MONOCYTES % (AUTO) 8.8 % (2.0-9.0); NEUTROPHILS # (AUTO) 2.7 K/uL (1.8-7.7); NEUTROPHILS % (AUTO) 57.1 % (40.0-70.0); PLATELET COUNT (AUTO) 299 K/uL (150-450); RED CELL DISTRIBUTION WIDTH 17.9 % (11.5-14.5)
[2018-06-23 13:16] LABS: ANION GAP 9 mmol/L (8-16); CALCIUM, TOTAL 8.9 mg/dL (8.8-10.5); CARBON DIOXIDE 26 mmol/L (22-29); CHLORIDE 105 mmol/L (98-107); CREATININE 0.49 mg/dL (0.60-1.30); GLOMERULAR FILTR. RATE CALC > 60 mL/min (>60); GLUCOSE,RANDOM 90 mg/dL (70-110); POTASSIUM 3.8 mmol/L (3.5-5.1); SODIUM SERUM 140 mmol/L (136-145); UREA NITROGEN, BLOOD 10 mg/dL (7-18)
[2018-06-23 13:21] LABS: ALANINE AMINOTRANSFERASE 26 U/L (12-78); ALBUMIN 3.5 g/dL (3.4-5.0); ALKALINE PHOSPHATASE 92 U/L (46-116); ASPARTATE AMINOTRANSFERASE 20 U/L (15-37); BILIRUBIN,TOTAL 0.3 mg/dL (0.1-1.0)
[2018-06-23 13:37] LABS: AMPHET/METH SCREEN,URINE POSITIVE (NEGATIVE); BARBITURATE SCREEN, URINE NEGATIVE (NEGATIVE); BENZODIAZEPINES SCREEN,URINE NEGATIVE (NEGATIVE); CANNABINOID SCREEN,URINE NEGATIVE (NEGATIVE); COCAINE SCREEN,URINE NEGATIVE (NEGATIVE); METHADONE SCREEN, URINE NEGATIVE (NEGATIVE); OPIATE SCREEN,URINE NEGATIVE (NEGATIVE); PHENCYCLIDINE SCREEN,URINE NEGATIVE (NEGATIVE)
[2018-06-23 19:09] LABS: APPEARANCE,URINE CLEAR (CLEAR); BILIRUBIN,URINE NEGATIVE (NEGATIVE); GLUCOSE, URINE (UA) NEGATIVE (NEGATIVE); KETONES,URINE 15 mg/dL (NEGATIVE); LEUKOCYTE ESTERASE ,URINE SMALL (NEGATIVE); NITRATE,URINE POSITIVE (NEGATIVE); OCCULT BLOOD,URINE NEGATIVE (NEGATIVE); PROTEIN,URINE NEGATIVE (NEGATIVE); UROBILINOGEN,URINE 0.2 mg/dL (<=1.0)
[2018-06-23 19:15] LABS: BACTERIA,URINE Moderate /HPF (None Seen); RBC,URINE 0-2 /HPF (0-2); SQUAMOUS EPITHELIAL CELL,UR Moderate /LPF (None Seen); YEAST,URINE Few /HPF (None Seen)
[2018-06-24] MEDS: LORazepam 2 MG TABLET PO PRN ×2 (06:35→17:35)
[2018-06-24 10:30] VITALS: BP 104/65
[2018-06-24 16:59] VITALS: BP 110/70
[2018-06-24] MEDS: CIPROFLOXACIN HCL 250 MG TABLET PO SCH (17:35)
[2018-06-24] MEDS: OLANZapine 10 MG TABLET PO SCH (20:25)
[2018-06-24] MEDS: HALOPERIDOL 5 MG TABLET PO PRN (20:31)
[2018-06-24] MEDS: ZOLPIDEM TARTRATE 10 MG TABLET PO PRN (21:16)
[2018-06-25 06:51] VITALS: BP 124/61
[2018-06-25] MEDS: CIPROFLOXACIN HCL 250 MG TABLET PO SCH ×2 (08:09→17:05)
[2018-06-25] MEDS: LORazepam 2 MG TABLET PO PRN ×2 (08:09→17:05)
[2018-06-25] MEDS: CITALOPRAM HYDROBROMIDE 20 MG TABLET PO SCH (08:09)
[2018-06-25 08:24] VITALS: BP 136/78
[2018-06-25 16:38] VITALS: BP 105/61
[2018-06-25] MEDS: OLANZapine 10 MG TABLET PO SCH (20:02)
[2018-06-26 00:40] VITALS: BP 129/75
[2018-06-26 08:20] VITALS: BP 135/72
[2018-06-26] MEDS: CITALOPRAM HYDROBROMIDE 20 MG TABLET PO SCH (08:48)
[2018-06-26] MEDS: CIPROFLOXACIN HCL 250 MG TABLET PO SCH ×2 (08:49→16:28)
[2018-06-26] MEDS: LORazepam 2 MG TABLET PO PRN ×2 (08:49→16:28)
[2018-06-26 16:12] VITALS: BP 102/68
[2018-06-26] MEDS: MUPIROCIN CALCIUM 2% 22 GM OINTMENT NASAL SCH (16:28)
[2018-06-26] MEDS: OLANZapine 7.5 MG TABLET PO SCH (21:01)
[2018-06-26] MEDS: ZOLPIDEM TARTRATE 10 MG TABLET PO PRN (21:01)
[2018-06-27 05:19] VITALS: BP 131/76
[2018-06-27 08:39] VITALS: BP 132/61
[2018-06-27] MEDS: CIPROFLOXACIN HCL 250 MG TABLET PO SCH ×2 (09:36→16:49)
[2018-06-27] MEDS: LORazepam 2 MG TABLET PO PRN (09:36)
[2018-06-27] MEDS: CITALOPRAM HYDROBROMIDE 20 MG TABLET PO SCH (09:36)
[2018-06-27] MEDS: MUPIROCIN CALCIUM 2% 22 GM OINTMENT NASAL SCH ×2 (09:37→16:49)
[2018-06-27 16:00] VITALS: BP 117/76
[2018-06-27] MEDS: OLANZapine 7.5 MG TABLET PO SCH (20:30)
[2018-06-28 06:27] VITALS: BP 127/67
[2018-06-28] MEDS: CITALOPRAM HYDROBROMIDE 20 MG TABLET PO SCH (10:00)
[2018-06-28] MEDS: MUPIROCIN CALCIUM 2% 22 GM OINTMENT NASAL SCH ×2 (10:00→16:10)
[2018-06-28] MEDS: CIPROFLOXACIN HCL 250 MG TABLET PO SCH ×2 (10:00→16:11)
[2018-06-28 16:00] VITALS: BP 127/66
[2018-06-28] MEDS: LORazepam 2 MG TABLET PO PRN (16:10)
[2018-06-28] MEDS: LORATADINE 10 MG TABLET PO PRN (17:38)
[2018-06-28] MEDS: OLANZapine 7.5 MG TABLET PO SCH (20:34)
[2018-06-29 06:43] VITALS: BP 118/85
[2018-06-29 08:19] VITALS: BP 125/69
[2018-06-29] MEDS: MUPIROCIN CALCIUM 2% 22 GM OINTMENT NASAL SCH ×2 (09:26→16:10)
[2018-06-29] MEDS: CITALOPRAM HYDROBROMIDE 20 MG TABLET PO SCH (09:27)
[2018-06-29] MEDS: CIPROFLOXACIN HCL 250 MG TABLET PO SCH ×2 (09:27→16:09)
[2018-06-29] MEDS ORDERED: IBUPROFEN 400 MG TABLET PO PRN (11:45)
[2018-06-29] MEDS ORDERED: PETROLATUM,WHITE 28 GM JELLY TP PRN (11:45)
[2018-06-29] MEDS ORDERED: CloNIDine HCL 0.1 MG TABLET PO PRN (11:45)
[2018-06-29] MEDS ORDERED: NICOTINE 14 MG/24 HOUR PATCH TD PRN (11:45)
[2018-06-29] MEDS ORDERED: ALBUTEROL SULFATE HFA 90 MCG/PUFF 8 GM INHALER IH PRN (11:45)
[2018-06-29] MEDS ORDERED: ONDANSETRON HCL 4 MG TABLET PO PRN (11:45)
[2018-06-29] MEDS ORDERED: ACETAMINOPHEN 325 MG TABLET PO PRN (11:45)
[2018-06-29] MEDS ORDERED: MAGNESIUM HYDROXIDE SUSPENSION 30 ML UDCUP PO PRN (11:45)
[2018-06-29] MEDS ORDERED: LOPERAMIDE HCL 2 MG CAPSULE PO PRN (11:45)
[2018-06-29] MEDS ORDERED: MAG HYDROX/AL HYDROX/SIMETH ES 30 ML SUSPENSION UDCUP PO PRN (11:45)
[2018-06-29] MEDS ORDERED: DOCUSATE SODIUM 100 MG CAPSULE PO PRN (11:45)
[2018-06-29] MEDS ORDERED: GuaiFENesin/D-METHORPHAN [SUGAR-FREE] 200-20MG/10 ML SYRUP UDCUP PO PRN (11:45)
[2018-06-29 13:33] VITALS: BP 115/78
[2018-06-29] MEDS: LORazepam 2 MG TABLET PO PRN (13:33)
[2018-06-29 16:13] VITALS: BP 140/60
[2018-06-29] MEDS: OLANZapine 7.5 MG TABLET PO SCH (20:08)
[2018-06-30 00:03] VITALS: BP 122/65
[2018-06-30 08:20] VITALS: BP 121/70
[2018-06-30] MEDS: CIPROFLOXACIN HCL 250 MG TABLET PO SCH ×2 (09:36→17:48)
[2018-06-30] MEDS: CITALOPRAM HYDROBROMIDE 20 MG TABLET PO SCH (09:36)
[2018-06-30] MEDS: MUPIROCIN CALCIUM 2% 22 GM OINTMENT NASAL SCH ×2 (09:36→17:48)
[2018-06-30 16:15] VITALS: BP 114/98
[2018-06-30] MEDS: LORazepam 2 MG TABLET PO PRN (17:48)
[2018-06-30] MEDS: ZOLPIDEM TARTRATE 10 MG TABLET PO PRN (20:23)
[2018-06-30] MEDS: OLANZapine 7.5 MG TABLET PO SCH (20:23)
[2018-06-30] MEDS: LORATADINE 10 MG TABLET PO PRN (20:23)
[2018-07-01 06:16] VITALS: BP 121/67
[2018-07-01 08:17] VITALS: BP 124/76
[2018-07-01] MEDS: MUPIROCIN CALCIUM 2% 22 GM OINTMENT NASAL SCH (08:24)
[2018-07-01] MEDS: CIPROFLOXACIN HCL 250 MG TABLET PO SCH (08:24)
[2018-07-01] MEDS: CITALOPRAM HYDROBROMIDE 20 MG TABLET PO SCH (08:25)
[2018-07-01 16:39] VITALS: BP 118/80
[2018-07-01] MEDS: LORazepam 2 MG TABLET PO PRN (17:12)
[2018-07-01] MEDS: OLANZapine 7.5 MG TABLET PO SCH (20:12)
[2018-07-02 03:51] VITALS: BP 119/78
[2018-07-02 08:40] VITALS: BP 123/70
[2018-07-02] MEDS: CITALOPRAM HYDROBROMIDE 20 MG TABLET PO SCH (09:46)
[2018-07-02] MEDS: LORazepam 2 MG TABLET PO PRN (12:57)
[2018-07-02] MEDS: LORATADINE 10 MG TABLET PO PRN (13:05)
[2018-07-02 16:00] VITALS: BP 113/66
[2018-07-02] MEDS: OLANZapine 7.5 MG TABLET PO SCH (20:18)
[2018-07-03 07:07] VITALS: BP 118/66
[2018-07-03 08:36] VITALS: BP 110/58
[2018-07-03] MEDS: CITALOPRAM HYDROBROMIDE 20 MG TABLET PO SCH (09:24)
[2018-07-03] MEDS: LORazepam 2 MG TABLET PO PRN ×2 (09:24→21:27)
[2018-07-03 16:25] VITALS: BP 128/69
[2018-07-03] MEDS: OLANZapine 7.5 MG TABLET PO SCH (21:27)
[2018-07-03] MEDS: ZOLPIDEM TARTRATE 10 MG TABLET PO PRN (21:27)
[2018-07-04 03:37] VITALS: BP 97/63
[2018-07-04 08:20] VITALS: BP 113/69
[2018-07-04] MEDS: CITALOPRAM HYDROBROMIDE 20 MG TABLET PO SCH (08:50)
[2018-07-04] MEDS: LORazepam 2 MG TABLET PO PRN ×2 (08:50→16:49)
[2018-07-04 16:31] VITALS: BP 107/60
[2018-07-04] MEDS: OLANZapine 7.5 MG TABLET PO SCH (20:40)
[2018-07-05 03:18] VITALS: BP 126/69
[2018-07-05] MEDS: LORazepam 2 MG TABLET PO PRN ×2 (07:15→17:23)
[2018-07-05 08:14] VITALS: BP 100/60
[2018-07-05] MEDS: CITALOPRAM HYDROBROMIDE 20 MG TABLET PO SCH (08:25)
[2018-07-05 16:22] VITALS: BP 118/79
[2018-07-05] MEDS: HALOPERIDOL 5 MG TABLET PO PRN (17:23)
[2018-07-05] MEDS: LORATADINE 10 MG TABLET PO PRN (19:39)
[2018-07-05] MEDS: ZOLPIDEM TARTRATE 10 MG TABLET PO PRN (20:55)
[2018-07-05] MEDS: OLANZapine 7.5 MG TABLET PO SCH (20:55)
[2018-07-06 02:37] VITALS: BP 106/60
[2018-07-06 08:11] VITALS: BP 120/65
[2018-07-06] MEDS: CITALOPRAM HYDROBROMIDE 20 MG TABLET PO SCH (09:00)
[2018-07-06 16:23] VITALS: BP 116/60
[2018-07-06] MEDS: HALOPERIDOL 5 MG TABLET PO PRN (18:00)
[2018-07-06] MEDS: LORazepam 2 MG TABLET PO PRN (18:00)
[2018-07-06] MEDS: OLANZapine 7.5 MG TABLET PO SCH (21:07)
[2018-07-07 07:18] VITALS: BP 115/70
[2018-07-07 08:45] VITALS: BP 109/79
[2018-07-07] MEDS: CITALOPRAM HYDROBROMIDE 20 MG TABLET PO SCH (10:14)
[2018-07-07 16:38] VITALS: BP 106/71
[2018-07-07] MEDS: OLANZapine 7.5 MG TABLET PO SCH (20:05)
[2018-07-08 07:22] VITALS: BP 115/72
[2018-07-08] MEDS: CITALOPRAM HYDROBROMIDE 20 MG TABLET PO SCH (08:15)
[2018-07-08] MEDS: LORazepam 2 MG TABLET PO PRN (08:16)
[2018-07-08 08:47] VITALS: BP 140/71
[2018-07-08 16:00] VITALS: BP 108/67
[2018-07-08] MEDS ORDERED: OLAN7.5T2 PO (17:20)
[2018-07-08] MEDS ORDERED: CITA-106 PO (17:20)
== END 2018-07-08 17:50 | disposition home or self-care (01) | DRG 750 ==
LOC: EMS 10:53 → B3A 06-24 08:58 → EMS 06-24 09:40
PROVIDERS: ADMIT Psychiatry & Neurology Psychiatry; ATTEND Psychiatry & Neurology Psychiatry
DX: F25.1 Schizoaffective disorder, depressive type (principal); R45.851 Suicidal ideations; Z59.0 Homelessness; F10.10 Alcohol abuse, uncomplicated; F32.9 Major depressive disorder, single episode, unspecified; F43.10 Post-traumatic stress disorder, unspecified; R10.13 Epigastric pain; K59.00 Constipation, unspecified; F19.10 Other psychoactive substance abuse, uncomplicated; N39.0 Urinary tract infection, site not specified; Z91.19 Patient's noncompliance with other medical treatment and regimen; Z91.5 Personal history of self-harm; Z88.1 Allergy status to other antibiotic agents; Z91.040 Latex allergy status; Z79.899 Other long term (current) drug therapy; Z90.49 Acquired absence of other specified parts of digestive tract; Z71.51 Drug abuse counseling and surveillance of drug abuser; Z71.41 Alcohol abuse counseling and surveillance of alcoholic
CPT/HCPCS: 87081; 87086; G0480

== ENCOUNTER 2018-10-01 12:42 | Inpatient (IN) | payer MEDICAID ==
[~2018-10-01] VITALS: Ht 162.6 cm; Wt 93.6 kg
[~2018-10-01 12:42] MED LIST changes: -OLAN10TA3 PO; +OLAN7.5T2 PO
[2018-10-01 16:19] VITALS: BP 134/82
[2018-10-01] MEDS: LORazepam 2 MG TABLET PO PRN (16:54)
[2018-10-01] MEDS ORDERED: NICOTINE 14 MG/24 HOUR PATCH TD PRN (17:15)
[2018-10-01] MEDS ORDERED: MAG HYDROX/AL HYDROX/SIMETH ES 30 ML SUSPENSION UDCUP PO PRN (17:15)
[2018-10-01] MEDS ORDERED: CloNIDine HCL 0.1 MG TABLET PO PRN (17:15)
[2018-10-01] MEDS ORDERED: LOPERAMIDE HCL 2 MG CAPSULE PO PRN (17:15)
[2018-10-01] MEDS ORDERED: IBUPROFEN 400 MG TABLET PO PRN (17:15)
[2018-10-01] MEDS ORDERED: PETROLATUM,WHITE 28 GM JELLY TP PRN (17:15)
[2018-10-01] MEDS ORDERED: ACETAMINOPHEN 325 MG TABLET PO PRN (17:15)
[2018-10-01] MEDS ORDERED: MAGNESIUM HYDROXIDE SUSPENSION 30 ML UDCUP PO PRN (17:15)
[2018-10-01] MEDS ORDERED: DOCUSATE SODIUM 100 MG CAPSULE PO PRN (17:15)
[2018-10-01] MEDS ORDERED: ALBUTEROL SULFATE HFA 90 MCG/PUFF 8 GM INHALER IH PRN (17:15)
[2018-10-01] MEDS ORDERED: GuaiFENesin/D-METHORPHAN [SUGAR-FREE] 200-20MG/10 ML SYRUP UDCUP PO PRN (17:15)
[2018-10-01] MEDS ORDERED: ONDANSETRON HCL 4 MG TABLET PO PRN (17:15)
[2018-10-02 06:08] VITALS: BP 130/79
[2018-10-02 08:09] VITALS: BP 139/101
[2018-10-02] MEDS: LORazepam 2 MG TABLET PO PRN ×3 (08:20→20:52)
[2018-10-02] MEDS: HALOPERIDOL 5 MG TABLET PO PRN ×2 (08:20→20:52)
[2018-10-02] MEDS ORDERED: DiphenhydrAMINE HCL 50 MG/ML VIAL IM ONE (13:15)
[2018-10-02] MEDS ORDERED: HALOPERIDOL LACTATE 5 MG/ML VIAL IM ONE (13:15)
[2018-10-02] MEDS ORDERED: LORazepam 2 MG/ML VIAL IM ONE (13:15)
[2018-10-02 14:52] VITALS: BP 113/59
[2018-10-02] MEDS: OLANZapine 7.5 MG TABLET PO SCH (20:52)
[2018-10-03 00:06] VITALS: BP 104/56
[2018-10-03 08:10] VITALS: BP 133/81
[2018-10-03] MEDS: CITALOPRAM HYDROBROMIDE 20 MG TABLET PO SCH (08:21)
[2018-10-03] MEDS: LORazepam 2 MG TABLET PO PRN ×2 (08:27→16:08)
[2018-10-03] MEDS: HALOPERIDOL 5 MG TABLET PO PRN ×2 (09:52→16:08)
[2018-10-03] MEDS: MUPIROCIN CALCIUM 2% 22 GM OINTMENT TP SCH (16:08)
[2018-10-03 17:12] VITALS: BP 138/86
[2018-10-03] MEDS: OLANZapine 7.5 MG TABLET PO SCH (20:33)
[2018-10-03] MEDS: ZOLPIDEM TARTRATE 10 MG TABLET PO PRN (20:33)
[2018-10-04 08:15] VITALS: BP 121/87
[2018-10-04] MEDS: MUPIROCIN CALCIUM 2% 22 GM OINTMENT TP SCH ×2 (09:00→17:02)
[2018-10-04] MEDS: CITALOPRAM HYDROBROMIDE 20 MG TABLET PO SCH (09:00)
[2018-10-04 16:12] VITALS: BP 118/74
[2018-10-04] MEDS: LORazepam 2 MG TABLET PO PRN (17:02)
[2018-10-04] MEDS: OLANZapine 7.5 MG TABLET PO SCH (20:11)
[2018-10-05] MEDS: CITALOPRAM HYDROBROMIDE 20 MG TABLET PO SCH (08:40)
[2018-10-05] MEDS: MUPIROCIN CALCIUM 2% 22 GM OINTMENT TP SCH ×2 (08:41→16:18)
[2018-10-05] MEDS: LORazepam 2 MG TABLET PO PRN ×2 (08:44→16:43)
[2018-10-05] MEDS: OLANZapine 7.5 MG TABLET PO SCH (20:11)
[2018-10-06] MEDS: MUPIROCIN CALCIUM 2% 22 GM OINTMENT TP SCH ×2 (08:24→16:48)
[2018-10-06] MEDS: CITALOPRAM HYDROBROMIDE 20 MG TABLET PO SCH (08:24)
[2018-10-06] MEDS: LORazepam 2 MG TABLET PO PRN ×2 (08:53→16:48)
[2018-10-06 16:12] VITALS: BP 101/68
[2018-10-06] MEDS: OLANZapine 7.5 MG TABLET PO SCH (20:13)
[2018-10-07 02:52] VITALS: BP 126/89
[2018-10-07] MEDS: MUPIROCIN CALCIUM 2% 22 GM OINTMENT TP SCH ×2 (08:27→16:31)
[2018-10-07] MEDS: CITALOPRAM HYDROBROMIDE 20 MG TABLET PO SCH (08:27)
[2018-10-07] MEDS: LORazepam 2 MG TABLET PO PRN ×2 (09:34→16:31)
[2018-10-07 16:12] VITALS: BP 113/69
[2018-10-07] MEDS: HALOPERIDOL 5 MG TABLET PO PRN (16:31)
[2018-10-07] MEDS: OLANZapine 7.5 MG TABLET PO SCH (20:26)
[2018-10-07] MEDS: ZOLPIDEM TARTRATE 10 MG TABLET PO PRN (20:26)
[2018-10-08 00:36] VITALS: BP 100/60
[2018-10-08] MEDS: MUPIROCIN CALCIUM 2% 22 GM OINTMENT TP SCH ×2 (08:22→16:40)
[2018-10-08] MEDS: CITALOPRAM HYDROBROMIDE 20 MG TABLET PO SCH (08:22)
[2018-10-08] MEDS: LORazepam 2 MG TABLET PO PRN (16:40)
[2018-10-08] MEDS: HALOPERIDOL 5 MG TABLET PO PRN (16:40)
[2018-10-08 16:48] VITALS: BP 103/61
[2018-10-08] MEDS: ZOLPIDEM TARTRATE 10 MG TABLET PO PRN (20:45)
[2018-10-08] MEDS: OLANZapine 7.5 MG TABLET PO SCH (20:45)
[2018-10-09 05:30] VITALS: BP 141/83
[2018-10-09] MEDS: CITALOPRAM HYDROBROMIDE 20 MG TABLET PO SCH (08:20)
[2018-10-09] MEDS: LORazepam 2 MG TABLET PO PRN ×2 (08:32→16:27)
[2018-10-09 13:04] VITALS: BP 112/70
[2018-10-09 16:06] VITALS: BP 122/69
[2018-10-09] MEDS: OLANZapine 7.5 MG TABLET PO SCH (20:02)
[2018-10-10 05:58] VITALS: BP 106/75
[2018-10-10 08:17] VITALS: BP 125/74
[2018-10-10] MEDS: CITALOPRAM HYDROBROMIDE 20 MG TABLET PO SCH (08:20)
== END 2018-10-10 10:30 | disposition home or self-care (01) | DRG 750 ==
LOC: B3A 13:14
DX: F25.1 Schizoaffective disorder, depressive type (principal); R45.851 Suicidal ideations; Z59.0 Homelessness; F10.10 Alcohol abuse, uncomplicated; F25.0 Schizoaffective disorder, bipolar type; F32.9 Major depressive disorder, single episode, unspecified; F41.9 Anxiety disorder, unspecified; D64.9 Anemia, unspecified; R00.0 Tachycardia, unspecified; Z88.1 Allergy status to other antibiotic agents; Z91.040 Latex allergy status; Z71.41 Alcohol abuse counseling and surveillance of alcoholic; Z71.51 Drug abuse counseling and surveillance of drug abuser; Z79.899 Other long term (current) drug therapy; Z91.5 Personal history of self-harm; Z90.49 Acquired absence of other specified parts of digestive tract
CPT/HCPCS: 87081; J1200; J1630; J2060

== ENCOUNTER 2018-10-11 17:45 | Inpatient (IN) | payer MEDICAID ==
[~2018-10-11] VITALS: Ht 162.6 cm; Wt 92.5 kg
[2018-10-11 18:29] LABS: BASOPHILS % (AUTO) 0.4 % (0.0-2.0); EOSINOPHILS % (AUTO) 1.9 % (1.0-6.0); HEMATOCRIT 36.2 % (36-46); HEMOGLOBIN 11.6 g/dL (12.0-16.0); LYMPHOCYTES # (AUTO) 1.3 K/uL (1.0-4.8); LYMPHOCYTES % (AUTO) 20.3 % (22.0-44.0); MEAN CORPUSCULAR HEMOGLOBIN 26.2 pg (26.0-34.0); MEAN CORPUSCULAR HGB CONC 32.1 G/dL (31.0-37.0); MEAN CORPUSCULAR VOLUME 82 fL (80-100); MONOCYTES # (AUTO) 0.5 K/uL (0.1-1.0); MONOCYTES % (AUTO) 7.6 % (2.0-9.0); NEUTROPHILS # (AUTO) 4.3 K/uL (1.8-7.7); NEUTROPHILS % (AUTO) 69.8 % (40.0-70.0); PLATELET COUNT (AUTO) 297 K/uL (150-450); RED BLOOD CELL COUNT(AUTO) 4.43 MIL/uL (4.00-5.20)
[2018-10-11 18:53] LABS: ANION GAP 7 mmol/L (8-16); CALCIUM, TOTAL 9.1 mg/dL (8.8-10.5); CARBON DIOXIDE 28 mmol/L (22-29); CHLORIDE 102 mmol/L (98-107); CREATININE 0.72 mg/dL (0.60-1.30); GLOMERULAR FILTR. RATE CALC > 60 mL/min (>60); GLUCOSE,RANDOM 98 mg/dL (70-110); POTASSIUM 4.1 mmol/L (3.5-5.1); SODIUM SERUM 137 mmol/L (136-145); UREA NITROGEN, BLOOD 13 mg/dL (7-18)
[2018-10-11 19:06] LABS: ALANINE AMINOTRANSFERASE 30 U/L (12-78); ALBUMIN 3.6 g/dL (3.4-5.0); ALKALINE PHOSPHATASE 88 U/L (46-116); ASPARTATE AMINOTRANSFERASE 39 U/L (15-37); BILIRUBIN,TOTAL 0.5 mg/dL (0.1-1.0); HCG,QUANTITATIVE < 1 mIU/mL (0-6); TOTAL PROTEIN, SERUM 8.7 g/dL (6.4-8.2)
[2018-10-11 21:25] LABS: APPEARANCE,URINE CLOUDY (CLEAR); BILIRUBIN,URINE NEGATIVE (NEGATIVE); GLUCOSE, URINE (UA) NEGATIVE (NEGATIVE); KETONES,URINE NEGATIVE (NEGATIVE); LEUKOCYTE ESTERASE ,URINE LARGE (NEGATIVE); NITRATE,URINE POSITIVE (NEGATIVE); OCCULT BLOOD,URINE NEGATIVE (NEGATIVE); PROTEIN,URINE TRACE (NEGATIVE)
[2018-10-11 21:27] LABS: AMPHET/METH SCREEN,URINE POSITIVE (NEGATIVE); BARBITURATE SCREEN, URINE NEGATIVE (NEGATIVE); BENZODIAZEPINES SCREEN,URINE NEGATIVE (NEGATIVE); CANNABINOID SCREEN,URINE NEGATIVE (NEGATIVE); COCAINE SCREEN,URINE NEGATIVE (NEGATIVE); METHADONE SCREEN, URINE NEGATIVE (NEGATIVE); OPIATE SCREEN,URINE NEGATIVE (NEGATIVE)
[2018-10-11 21:28] LABS: PHENCYCLIDINE SCREEN,URINE NEGATIVE (NEGATIVE)
[2018-10-11 21:49] LABS: BACTERIA,URINE Many /HPF (None Seen)
[2018-10-11 21:50] LABS: RBC,URINE 0-2 /HPF (0-2); WBC,URINE 51-100 /HPF (0-5)
[2018-10-11 21:51] LABS: SQUAMOUS EPITHELIAL CELL,UR Moderate /LPF (None Seen)
[2018-10-12] MEDS: HALOPERIDOL 5 MG TABLET PO PRN ×2 (00:53→17:04)
[2018-10-12] MEDS: ZOLPIDEM TARTRATE 10 MG TABLET PO PRN ×2 (00:53→21:14)
[2018-10-12] MEDS: LORazepam 2 MG TABLET PO PRN ×2 (08:34→17:04)
[2018-10-12 09:12] VITALS: BP 118/83
[2018-10-12] MEDS ORDERED: IBUPROFEN 400 MG TABLET PO PRN (09:15)
[2018-10-12] MEDS ORDERED: LOPERAMIDE HCL 2 MG CAPSULE PO PRN (09:15)
[2018-10-12] MEDS ORDERED: PETROLATUM,WHITE 28 GM JELLY TP PRN (09:15)
[2018-10-12] MEDS ORDERED: NICOTINE 14 MG/24 HOUR PATCH TD PRN (09:15)
[2018-10-12] MEDS ORDERED: CloNIDine HCL 0.1 MG TABLET PO PRN (09:15)
[2018-10-12] MEDS ORDERED: MAGNESIUM HYDROXIDE SUSPENSION 30 ML UDCUP PO PRN (09:15)
[2018-10-12] MEDS ORDERED: ONDANSETRON HCL 4 MG TABLET PO PRN (09:15)
[2018-10-12] MEDS ORDERED: ACETAMINOPHEN 325 MG TABLET PO PRN (09:15)
[2018-10-12] MEDS ORDERED: GuaiFENesin/D-METHORPHAN [SUGAR-FREE] 200-20MG/10 ML SYRUP UDCUP PO PRN (09:15)
[2018-10-12] MEDS ORDERED: MAG HYDROX/AL HYDROX/SIMETH ES 30 ML SUSPENSION UDCUP PO PRN (09:15)
[2018-10-12] MEDS ORDERED: ALBUTEROL SULFATE HFA 90 MCG/PUFF 8 GM INHALER IH PRN (09:15)
[2018-10-12] MEDS ORDERED: DOCUSATE SODIUM 100 MG CAPSULE PO PRN (09:15)
[2018-10-12 09:18] LABS: CHOL/HDL RATIO 3.3 (3.9-5.7)
[2018-10-12] MEDS: CITALOPRAM HYDROBROMIDE 20 MG TABLET PO SCH (11:44)
[2018-10-12] MEDS: CIPROFLOXACIN HCL 500 MG TABLET PO SCH (16:13)
[2018-10-12 16:43] VITALS: BP 119/76
[2018-10-12] MEDS: OLANZapine 7.5 MG TABLET PO SCH (20:42)
[2018-10-13] MEDS: CIPROFLOXACIN HCL 500 MG TABLET PO SCH ×2 (09:10→16:25)
[2018-10-13] MEDS: CITALOPRAM HYDROBROMIDE 20 MG TABLET PO SCH (09:10)
[2018-10-13] MEDS: LORazepam 2 MG TABLET PO PRN (12:14)
[2018-10-13 13:11] VITALS: BP 122/69
[2018-10-13 18:23] VITALS: BP 113/75
[2018-10-13] MEDS: OLANZapine 7.5 MG TABLET PO SCH (21:28)
[2018-10-14] MEDS: CITALOPRAM HYDROBROMIDE 20 MG TABLET PO SCH (09:53)
[2018-10-14] MEDS: CIPROFLOXACIN HCL 500 MG TABLET PO SCH ×2 (09:53→16:57)
[2018-10-14 18:11] VITALS: BP 109/68
[2018-10-14] MEDS: OLANZapine 7.5 MG TABLET PO SCH (20:25)
[2018-10-15] MEDS: CIPROFLOXACIN HCL 500 MG TABLET PO SCH ×2 (09:52→17:57)
[2018-10-15] MEDS: CITALOPRAM HYDROBROMIDE 20 MG TABLET PO SCH (09:52)
[2018-10-15 10:11] VITALS: BP 132/83
[2018-10-15] MEDS: LORazepam 2 MG TABLET PO PRN (12:07)
[2018-10-15 17:06] VITALS: BP 108/51
[2018-10-15] MEDS: ZOLPIDEM TARTRATE 10 MG TABLET PO PRN (20:35)
[2018-10-15] MEDS: OLANZapine 7.5 MG TABLET PO SCH (20:35)
[2018-10-16] MEDS: CITALOPRAM HYDROBROMIDE 20 MG TABLET PO SCH (09:02)
[2018-10-16] MEDS: CIPROFLOXACIN HCL 500 MG TABLET PO SCH ×2 (09:03→16:00)
[2018-10-16 10:03] VITALS: BP 102/61
[2018-10-16] MEDS: LORazepam 2 MG TABLET PO PRN (16:00)
[2018-10-16] MEDS: HALOPERIDOL 5 MG TABLET PO PRN (16:00)
[2018-10-16 16:13] VITALS: BP 133/79
[2018-10-16] MEDS: OLANZapine 7.5 MG TABLET PO SCH (21:12)
[2018-10-17] MEDS: CIPROFLOXACIN HCL 500 MG TABLET PO SCH ×2 (09:31→16:23)
[2018-10-17] MEDS: HALOPERIDOL 5 MG TABLET PO PRN ×2 (09:32→16:24)
[2018-10-17] MEDS: CITALOPRAM HYDROBROMIDE 20 MG TABLET PO SCH (09:32)
[2018-10-17] MEDS: LORazepam 2 MG TABLET PO PRN ×2 (09:32→16:24)
[2018-10-17 13:50] VITALS: BP 145/72
[2018-10-17 16:53] VITALS: BP 108/73
[2018-10-17] MEDS: OLANZapine 7.5 MG TABLET PO SCH (20:47)
[2018-10-18] MEDS: LORazepam 2 MG TABLET PO PRN (09:46)
[2018-10-18] MEDS: CIPROFLOXACIN HCL 500 MG TABLET PO SCH ×2 (09:47→16:14)
[2018-10-18] MEDS: CITALOPRAM HYDROBROMIDE 20 MG TABLET PO SCH (09:47)
[2018-10-18 18:52] VITALS: BP 110/74
[2018-10-18] MEDS: OLANZapine 7.5 MG TABLET PO SCH (20:48)
[2018-10-19] MEDS: CITALOPRAM HYDROBROMIDE 20 MG TABLET PO SCH (08:30)
[2018-10-19] MEDS: HALOPERIDOL 5 MG TABLET PO PRN (08:31)
[2018-10-19] MEDS: LORazepam 2 MG TABLET PO PRN (08:31)
[2018-10-19 12:11] VITALS: BP 120/71
[2018-10-19] MEDS ORDERED: OLAN7.5T9 PO (15:13)
[2018-10-19] MEDS ORDERED: CITA-106 PO (15:13)
[2018-10-19 17:04] VITALS: BP 104/67
== END 2018-10-19 18:19 | disposition home or self-care (01) | DRG 750 ==
LOC: EMS 17:47 → 3EI 10-12 07:10
DX: F25.1 Schizoaffective disorder, depressive type (principal); R45.851 Suicidal ideations; F79 Unspecified intellectual disabilities; D64.9 Anemia, unspecified; F15.10 Other stimulant abuse, uncomplicated; F41.9 Anxiety disorder, unspecified; F10.10 Alcohol abuse, uncomplicated; N39.0 Urinary tract infection, site not specified; F43.10 Post-traumatic stress disorder, unspecified; Z88.1 Allergy status to other antibiotic agents; Z59.0 Homelessness; Z91.040 Latex allergy status; Z90.49 Acquired absence of other specified parts of digestive tract; Z79.899 Other long term (current) drug therapy
CPT/HCPCS: 87081; 87086; G0480